=== PATIENT | male | born 1990 | race Caucasian/White ===

== ENCOUNTER 2018-12-26 03:36 | Emergency (ER) | payer OTHER ==
[~2018-12-26] VITALS: Ht 180.3 cm; Wt 78.1 kg
[2018-12-26 03:43] VITALS: Ht 180.3 cm; Wt 78.1 kg
[2018-12-26] MEDS ORDERED: HYDROCODONE/APAP (10/325) TAB PO ONE (04:30)
[2018-12-26] MEDS ORDERED: ONDANSETRON (ODT) 4 MG TAB ODT STA (05:26)
[2018-12-26] MEDS ORDERED: morphine 4 MG/ML VIAL IM STA (05:26)
--- NOTE | 2018-12-26 05:38 | ERD ---
ER Documentation Chief Complaint Chief Complaint TESTICULAR PAIN X 5 HRS [employer] HPI This is a 28-year-old male who complains of testicular pain 5 hours prior to arrival. It was insidious in onset. No fevers no chills no nausea vomiting. Denies trauma. Denies any new sexual activity. Patient says pain is mild to mo derate in intensity with no exacerbating alleviating factors. No previous testicular injury. No previous history of STDs. ROS All systems reviewed and are negative except as per history of present illness. Allergies Allergies: Coded Allergies: ceftriaxone (Verified Allergy, Unknown, 12/26/18) codeine (Verified Allergy, Unknown, 12/26/18) PMhx/Soc Medical and Surgical Hx: pt denies Medical Hx History of Surgery: Yes (APPENDECTOMY 2018) Anesthesia Reaction: No Hx Neurological Disorder: No Hx Respiratory Disorders: No Hx Cardiac Disorders: No Hx Psychiatric Problems: No Hx Miscellaneous Medical Probl: No Hx Alcohol Use: No Hx Substance Use: No Hx Tobacco Use: No Smoking Status: Never smoker Physical Exam Vitals Vital Signs Date Temp Pulse Resp B/P (MAP) Pulse Ox O2 O2 Flow FiO2 Time Delivery Rate 12/26/18 98.1 90 18 119/66 100 03:43 (83) Physical Exam Const: No acute distress Head: Atraumatic Eyes: Normal Conjunctiva ENT: Normal External Ears, Nose and Mouth. Neck: Full range of motion. No meningismus. Resp: Clear to auscultation bilaterally Cardio: Regular rate and rhythm, no murmurs Abd: Soft, non tender, non distended. Normal bowel sounds Skin: No petechiae or rashes Back: No midline or flank tenderness Ext: No cyanosis, or edema Neur: Awake and alert Psych: Normal Mood and Affect. : Patient has mild pain and tenderness to palpation of left testicle Results 24 hrs Laboratory Tests Test 12/26/18 04:09 Urine Color YELLOW Urine Clarity CLEAR Urine pH 6.0 Urine Specific [place] > 1.060 Urine Ketones NEGATIVE mg/dL Urine Nitrite NEGATIVE mg/dL Urine Bilirubin NEGATIVE mg/dL Urine Urobilinogen NEGATIVE mg/dL Urine Leukocyte Esterase NEGATIVE Ryan/ul Urine Hemoglobin NEGATIVE mg/dL Urine Glucose NEGATIVE mg/dL Urine Total Protein NEGATIVE mg/dl Current Medications Medications Dose Sig/Jack Start Time Status Last (Trade) Ordered Route PRN Stop Time Admin Dose Reason Admin 1 tab ONCE ONCE 12/26/18 DC 12/26/18 Acetaminophen PO 04:30 04:33 / 12/26/18 04:31 Hydrocodone Bitart ([place] ()) Morphine 4 mg ONCE STAT 12/26/18 DC Sulfate IM 05:26 (morphine) 12/26/18 05:27 Ondansetron 4 mg ONCE STAT 12/26/18 DC HCl (Zofran ODT 05:26 Odt) 12/26/18 05:27 Doxycycline 100 mg ONCE ONCE 12/26/18 UNV Hyclate PO 06:00 (Vibramycin) 12/26/18 06:01 500 mg ONCE ONCE 12/26/18 UNV Ciprofloxacin PO 06:00 (Cipro) 12/26/18 06:01 Procedures/MDM Ultrasound shows a prominent left epididymal tract. Please see ultrasound report by radiologist for full report. Medical decision makin-year-old male comes in with left testicular pain. No evidence of torsion. Normal color flow on the ultrasound. Does have some pain to palpation and complain of subjective fever. Denies any dysuria. Patient does have mildly prominent epididymis. More than likely this is representing early stages of epididymitis. Departure Diagnosis: Primary Impression: Pain in testicle Additional Impression: Epididymitis Condition: Stable BENNY ZAMARRIPA Dec 26, 2018 05:38
[2018-12-26] MEDS ORDERED: TRAM50TA2 PO (05:45)
[2018-12-26] MEDS ORDERED: CIPR500T4 PO (05:45)
[2018-12-26] MEDS ORDERED: DOXY100T20 PO (05:45)
[2018-12-26] MEDS ORDERED: CIPROFLOXACIN 500 MG TAB PO ONE (06:00)
[2018-12-26] MEDS ORDERED: DOXYCYCLINE 100 MG TAB PO ONE (06:00)
[2018-12-26 06:15] VITALS: BP 113/85; PULSE 71; RESP 18
== END 2018-12-26 06:23 | disposition home or self-care (01) ==
LOC: E/R 03:36
DX: N45.1 Epididymitis (principal)
CPT/HCPCS: 76870; 81003; 99284; J2270